=== PATIENT | female | born 1965 ===

== ENCOUNTER 2023-04-29 17:11 | Inpatient (IN) ==
[2023-04-29] MEDS ORDERED: Al Hydrox/Mg Hydrox/Simet LIQ 30 ML UDC PO PRN (20:37)
[2023-04-30] MEDS ORDERED: Venlafaxine XR 75 mg PO SCH (09:00)
[2023-04-30] MEDS: Vitamin THERAPEUTIC TAB PO SCH (09:31)
[2023-05-01] MEDS: Vitamin THERAPEUTIC TAB PO SCH (08:31)
[2023-05-01] MEDS: Venlafaxine XR 75 mg PO SCH (08:31)
[2023-05-02] MEDS: Venlafaxine XR 75 mg PO SCH (07:53)
[2023-05-02] MEDS: Vitamin THERAPEUTIC TAB PO SCH (07:53)
[2023-05-02 08:41] LABS: HDL Cholesterol 94.2 mg/dL
[2023-05-03] MEDS: Vitamin THERAPEUTIC TAB PO SCH (09:02)
[2023-05-03] MEDS: Venlafaxine XR 75 mg PO SCH (09:02)
[2023-05-04] MEDS: Vitamin THERAPEUTIC TAB PO SCH (08:04)
[2023-05-04] MEDS: Venlafaxine XR 75 mg PO SCH (08:04)
[2023-05-05] MEDS: Vitamin THERAPEUTIC TAB PO SCH (08:35)
[2023-05-05] MEDS: Venlafaxine XR 75 mg PO SCH (08:35)
== END 2023-05-05 13:16 | disposition home or self-care (01) | DRG 751 ==
LOC: BSU 20:34
PROVIDERS: ADMIT Psychiatry & Neurology Psychiatry; ATTEND Student in an Organized Health Care Education/Training Program